=== PATIENT | female | born 1985 | race American Indian/Alaskan Native ===

== ENCOUNTER 2017-07-23 07:43 | Emergency (ER) | payer OTHER ==
[2017-07-23 07:43] VITALS: BMI 46.9
[2017-07-23] MEDS ORDERED: Oxycodone/Acetaminophen 5/325 mg Tab PO STA (08:17)
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
[2017-07-23] MEDS ORDERED: Oxycodone/Acetaminophen 5/325 mg Tab ONE (08:27)
[2017-07-23 10:02] VITALS: BP 106/67; PULSE 74; RESP 16; TEMP 97.6
--- NOTE | 2017-07-23 10:19 | RAD ---
Left femur four views History: Leg pain. Comparison: None available. Findings: No evidence for acute displaced fracture or dislocation. Impression: Negative acute. If pain persists, consider MRI.
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
[2017-07-23 16:37] VITALS: O2SAT 100
== END 2017-07-23 10:18 | disposition home or self-care (01) ==
LOC: C.ER 07:43
DX: T14.8XXA Other injury of unspecified body region, initial encounter (principal); V47.5XXA Car driver injured in collision with fixed or stationary object in traffic accident, initial encounter; Z87.891 Personal history of nicotine dependence